=== PATIENT | male | born 1955 | race Caucasian/White ===

== ENCOUNTER 2024-10-22 05:33 | Inpatient (IN) ==
--- NOTE | 2024-10-16 12:12 | Anesthesiology Consultation ---
Date of Service October 16, 2024 Assessment & Plan (1) Encounter for pre-operative examination: Chart Review Chart Review: Acceptable Risk for Surgery and Patient NOT seen in Pre Admission Testing -Infectious Disease screening: Per PAT nursing assessment on 10/16/24. No known infectious disease contacts in past 10 days or current infectious disease symptoms. No recent travel outside the country. History Surgery Operation Date: 10/22/24 07:45 Proposed Procedures p L2-L3 Decompression and Fusion, Hardware Removal L3-L5 - Dov Myers DO Height/Weight Height: 5 ft 8 in Weight: 92.986 kg Allergies Allergy/AdvReac Type Severity Reaction Status Date / Time dutasteride Allergy Severe Difficulty Verified 10/16/24 11:33 Breathing Medications Home Medications Medication Instructions Recorded Confirmed Last Taken Vitamin D3 1 tab PO QPM 10/16/24 10/16/24 Unknown ascorbic acid (vitamin C) 1,000 mg 1 g PO QPM 10/16/24 10/16/24 Unknown tablet (Vitamin C) cyanocobalamin (vitamin B-12) 1 tab PO QPM 10/16/24 10/16/24 Unknown lisinopril 5 mg tablet 5 mg PO QAM 10/16/24 10/16/24 Unknown magnesium 200 mg tablet 400 mg PO HS 10/16/24 10/16/24 Unknown zolpidem 5 mg tablet (Ambien) 5 mg PO HS PRN prn 10/16/24 10/16/24 Unknown Past Medical History Medical History History of urinary retention [id number] self cath daily, was told "bladder was " referred to urology and had TURP 2018, no issues since Hypertension Osteoarthritis Past Surgical History Surgical History Fusion of spine L3 L4 L5-[facility] History of cataract surgery bilateral History of tonsillectomy History of transurethral resection of prostate History of umbilical hernia repair Social History Smoking Status: Never smoker Do You Dip or Chew Tobacco: No Hx Alcohol Use: Yes alcohol intake frequency: a few times a week Hx Substance Use: No substance use type: does not use Lab Results Anesthesia Preop Results Results Anesthesia Widget: WBC 6.03 K/ul (4.8-10.8) 11/12/24 Hgb 16.1 g/dl (14.0-18.0) 10/13/24 Hct 46.5 % (42.0-52.0) 10/13/24 Plt 213 K/uL (130-400) 10/13/24 Na 139 mmol/L (136-145) 10/13/24 K 4.1 mmol/L (3.5-5.1) 10/13/24 Cl 106 mmol/L (98-107) 10/13/24 CO2 25 mmol/L (21-32) 10/13/24 BUN 16 mg/dl (6-23) 10/13/24 Creat 0.97 mg/dl (0.6-1.4) 10/13/24 Glucose Level 90 mg/dl (70-99(Fasting)) 10/13/24 PT 10.3 Seconds (9.0-12.0) 10/13/24 PTT 29 Seconds (21-31) 10/13/24 INR 0.9 (0.9-1.1) 10/13/24 Urine Color Yellow 10/13/24 Urine Appearance Clear (Clear) 10/13/24 Urine pH 5.5 (4.5-7.5) 10/13/24 Urine Specific [place] 1.017 (1.000-1.030) 10/13/24 Urine Protein Negative (Negative) 10/13/24 Urine Glucose (UA) Negative (Negative) 10/13/24 Urine Ketones Negative (Negative) 10/13/24 Urine Blood Negative (Negative) 10/13/24 Urine Nitrite Negative (Negative) 10/13/24 Urine Bilirubin Negative (Negative) 10/13/24 Urine Urobilinogen Negative (Negative) 10/13/24 Urine Leukocyte Esterase Negative (Negative) 10/13/24 Blood Type O Positive 10/13/24 Antibody Screen NEGATIVE 10/13/24 Testing Laboratory Results 10/13/24= URINE CULTURE: More than three types of organisms present, all low counts mixed probable skin kimberly Electrocardiogram Date: 10/13/24 Findings: + NSR @ (60bpm) Normal EKG per cardio Chest X-Ray Date: 10/13/24 Findings: + NAD
[2024-10-22] MEDS: ACETAMINOPHEN 500 MG TAB PO SCH (06:13)
[2024-10-22] MEDS: LR 15ML/HR IV SCH (06:13)
[2024-10-22] MEDS: CeleBREX 200 MG CAP PO SCH (06:13)
[2024-10-22] MEDS: GABAPENTIN 300 MG CAP PO SCH (06:13)
[2024-10-22] MEDS: LR 60ML/HR IV SCH (06:13)
[2024-10-22] MEDS ORDERED: MIDAZOLAM HCL 1 MG/ML 2ML VIAL ONE (07:01)
[2024-10-22] MEDS ORDERED: fentaNYL citrate PF 100 MCG/2 ML VIAL ONE ×2 (07:01→09:15)
[2024-10-22] MEDS ORDERED: ROCURONIUM BROMIDE 10 MG/ML 5 ML VIAL IV ONE (07:02)
[2024-10-22] MEDS ORDERED: PROPOFOL IV EMULSION 10 MG/ML 20 ML VIAL IV ONE ×2 (07:02→07:03)
[2024-10-22] MEDS ORDERED: ONDANSETRON INJ 2 MG/ML 2 ML VIAL ONE (07:02)
[2024-10-22] MEDS ORDERED: GLYCOPYRROLATE 0.2 MG/ML VIAL ONE ×2 (07:02→08:52)
[2024-10-22] MEDS ORDERED: DEXAMETHASONE SOD INJ 4 MG/ML VIAL ONE (07:02)
[2024-10-22] MEDS ORDERED: LIDOCAINE 2% 2 ML VIAL/AMP(20MG/ML) INFIL ONE (07:02)
[2024-10-22] MEDS ORDERED: ePHEDrine sulfate 50 MG/ML AMP IV PRN (07:14)
[2024-10-22] MEDS ORDERED: PROMETHAZINE HCL 6.25 MG in SODIUM CHLORIDE 0.9% 50 ML IV PRN (07:14)
[2024-10-22] MEDS ORDERED: fentaNYL citrate PF 100 MCG/2 ML VIAL IV PRN (07:14)
[2024-10-22] MEDS ORDERED: ONDANSETRON INJ 2 MG/ML 2 ML VIAL IV PRN ×2 (07:14→11:43)
[2024-10-22] MEDS ORDERED: ATROPINE SULFATE 0.1 MG/ML 10ML SYR IV PRN (07:14)
--- NOTE | 2024-10-22 07:40 | History & Physical Bridge Note ---
Date of Service October 22, 2024 History & Physical Bridge Note I have examined the patient, reviewed the History & Physical and in the interval since the performance of the History & Physical I have noted the following changes of clinical significance: no changes noted
--- NOTE | 2024-10-22 07:41 | History & Physical Report ---
Date of Service October 22, 2024 Assessment & Plan (1) Neurogenic claudication due to lumbar spinal stenosis: Plan: L2-L3 decompression and fusion, hardware removal L3-L5. History of Present Illness Chief Complaint: Back and leg pain Primary Care Provider: Sundeep Ortiz This is a 68-year-old male presents with chronic persistent back and leg pain and failing course of nonoperative care is here for surgical invention. Allergies Allergy/AdvReac Type Severity Reaction Status Date / Time dutasteride Allergy Severe Difficulty Verified 10/22/24 05:58 Breathing Home Medications Medication Instructions Recorded Confirmed Type Vitamin D3 1 tab PO QPM 10/16/24 10/16/24 History ascorbic acid (vitamin C) 1,000 mg 1 g PO QPM 10/16/24 10/16/24 History tablet (Vitamin C) cyanocobalamin (vitamin B-12) 1 tab PO QPM 10/16/24 10/16/24 History lisinopril 5 mg tablet 5 mg PO QAM 10/16/24 10/22/24 History magnesium 200 mg tablet 400 mg PO HS 10/16/24 10/16/24 History zolpidem 5 mg tablet (Ambien) 5 mg PO HS PRN prn 10/16/24 10/16/24 History Past Med/Surg History Problem List (Updated 10/22/24 @ 07:41 by Dov Myers DO) Neurogenic claudication due to lumbar spinal stenosis Encounter for pre-operative examination Carpal tunnel syndrome on both sides Medical History History of urinary retention [id number] self cath daily, was told "bladder was " referred to urology and had TURP 2018, no issues since Hypertension Osteoarthritis Surgical History Fusion of spine L3 L4 L5-[facility] History of cataract surgery bilateral History of tonsillectomy History of transurethral resection of prostate History of umbilical hernia repair Social History Smoking Status: Never smoker Second Hand Exposure: No; Do You Dip or Chew Tobacco: No; Tobacco Cessation Education Requested by Patient: No Hx Alcohol Use: Yes Hx Substance Use: No Preferred Language: Telugu Frame Bander Required: No Beliefs That Will Affect Care: None Current Living Situation: Family Other Information That Helps Us Care for You: No Feels Safe at Home: Yes Safety Concerns: Feels Safe At This Time Assistive Devices: None Physical Exam Physical Exam: Patient is alert and oriented heart regular in rhythm lungs clear Results & Data Results & Data Vital Signs (Past 12 Hours) Vital Signs Temp Pulse Resp BP Pulse Ox O2 Del Method 10/22/24 05:57 36.4 C L 68 20 153/93 H 95 Room Air
[2024-10-22] MEDS: ceFAZolin 2000MG 2,000 MG/15 ML SYR IV SCH ×2 (07:48→16:41)
[2024-10-22] MEDS: BUPIVACAINE/EPINEPHRINE 0.25% 1:200,000 30 ML VIAL ONE (08:33)
[2024-10-22] MEDS: ceFAZolin 330 MG/ML 1 GM VIAL ONE (08:34)
[2024-10-22] MEDS ORDERED: diphenhydrAMINE 50 MG/ML VIAL ONE (08:53)
[2024-10-22] MEDS ORDERED: PHENYLEPHRINE 100MCG/ML 5ML SYR ONE (09:23)
[2024-10-22] MEDS ORDERED: SUGAMMADEX SODIUM 200 MG/2 ML VIAL IV ONE (09:36)
--- NOTE | 2024-10-22 10:05 | Operative Report ---
Post Operative Report Pre & Post Diagnosis Operation Date: 10/22/24 07:45 Pre-Op Diagnosis: Neurogenic Claudication due to Lumbar Spinal Stenosis Lumbar discrimination L2-L3 Post-Op Diagnosis: same I identified the patient and participated in the time-out.: Yes Procedure Operation Date: 10/22/24 07:45 Actual Procedures 1. Removal of posterior instrumentation L3-L4 L4-L5. #2 exploration of fusion L3-L4 L4-L5. #3 lumbar decompression with bilateral medial facetectomies and foraminotomies L1-L2 L2-L3 including removal of herniated disc. #4 posterior spinal fusion L2-L3. #5 placement posterior instrumentation L2-L5. #6 interbody fusion L2-L3. #7 placement of Spira 14 x 26 mm at L2-L3. #8 placement locally harvested morselized autograft and posterior gutters. #9 placement infuse collagen sponge, with Koros in the posterior lateral gutters and os design and interbody space. #10 placement of versa wrap of the exposed dura. Surgeon Dov Myers, DO Bit Grinder Marilynn Hannah Estimated Blood Loss 200 Findings See Below The patient is 5 foot 8 weighing over 93 kg with a BMI in excess of 31. Patient's body habitus did contribute to significant technical difficulty with positioning exposure and the procedure itself adding at least 50% increased operative time. Specimens None Indications This is a 68-year-old male presents manage diagnosis of failed course of nonoperative care is here for surgical invention. Description of Procedure Patient was met with identified informed consent obtained. Patient was then taken to the operative suite underwent intubation placed in a prone position on the Abad table on top of the Herminio frame. All bony prominences well-padded eyes inspected to ensure no external pressure placed upon them. This point the lumbar spine was prepped and draped in a sterile fashion. Sharp dissection with the assistance of Bovie cautery was formed down to and exposing the lamina and transverse processes of L2 and instrumentation L3 L4-5 bilaterally. I then proceeded to remove the hardware bilaterally explored the fusion mass noted again to be mature and intact. Then performed a complete laminectomy of L2 with bilateral medial facetectomies and foraminotomies including removal of herniated disc on the right. This was followed by partial laminectomy of L1 with bilateral medial facetectomies to address all subarticular stenosis. Pedicle screws then placed at L2-L3 and L5 bilaterally with assistance of fluoroscopy and appropriate sized tete contoured and placed. By way of a trans foraminal approach on the right and complete discectomy of L2-L3 was performed endplates guided to subcortical bleeding bone and a 14 x 26 mm Spira cage filled with os design tapped into position. The rods were then compressed locked in final position bilaterally. The transverse processes of L2-L3 burred to subcortical bleeding bone. Infuse collagen sponge combined with Koros and local autograft placed in the posterior lateral gutters. Versa wrap placed over the exposed dura. 15 round JESSICA drain inserted. Incision was then closed with 1 Vicryl fascia 2-0 Vicryl subcutaneously and 4 Monocryl for final skin closure. Steri- Strips sterile dressing placed. Patient waken taken to PACU in stable condition. Please note Marilynn Hannah was present out the entire procedure and all the patient positioning complex portion of the surgery and final skin closure. Spinal cord monitoring was utilized at the procedure no changes noted. Im ordering 20 grams of Triple Funk Collagen Powder ([id number] [id number]) to treat an incision wound that was caused by a spine procedure. The incision is approximately 2 cm(W) x 4 cm(L) into the joint (D) in size and is a full thickness wound. Triple Funk collagen comes in 1 gram packets so 20 packets were ordered. Given the size of the wound, with light to moderate exudate I chose to order a 20 day supply. The patient will be provided instructions for proper application of the collagen wound kit. The patient will be asked to apply the collagen powder daily and then cover it with sterile dressings dispensed. Collagen was selected as I expect the collagen to attract monocytes and fibroblasts, act as a sacrificial substrate for MMPs, and ultimately proved a matrix for tissue and vessel growth. The collagen will act as a primary dressing in this scenario. It is medically necessary for proper healing of these wounds to improve bioavailability and contact with each wound surface, t his is also to help prevent infection of wounds and promote healing ultimately leading to a better healing outcome and limit the risk of infection. I attest to the content of the Intraoperative Record and any orders documented therein. Any exceptions are noted below.
[2024-10-22] MEDS: FLOSEAL HEMOSTATIC MATRIX 10ML TOP ONE (10:11)
--- NOTE | 2024-10-22 10:53 | Fluoroscopy Report ---
FL lumbar spine 2-3V CLINICAL HISTORY: L2-L3 DECOMPRESSION COMPARISON STUDY: Lumbar spine radiographs April 04, 2018. Lumbar spine MRI March 28, 2018. FLUOROSCOPY TIME: 12 seconds. cem Aj: 9.33 mGy FLUOROSCOPIC IMAGES: 2 FINDINGS: Fluoroscopy was provided during hardware removal and subsequent L2-L3 discectomy and fusion . Left L4 pedicle screw remains in place. There are bilateral pedicle screws at the L2, L3 and L5 lev els with interconnecting rods. IMPRESSION: Fluoroscopy provided during hardware removal and subsequent L2-L3 decompression and fusi on. ACT 112: Negative or not required by law. Electronically signed by: Compa Rock M.D. 10/22/2024 10:52 AM
--- NOTE | 2024-10-22 10:58 | Anesthesiology Progress Note ---
Date of Service October 22, 2024 Anesthesia Post Procedure Vital Signs Vital Signs: Temp Pulse Pulse Resp BP Pulse Ox O2 Del Method 10/22/24 10:45 76 10 L 136/91 98 Oxymask 10/22/24 10:35 70 11 L 148/97 H 98 Oxymask 10/22/24 10:25 74 8 L 154/105 H 98 Oxymask 10/22/24 10:16 36.0 C L 84 8 L 167/97 H 96 Oxymask 10/22/24 05:57 36.4 C L 68 20 153/93 H 95 Room Air O2 Flow Rate 10/22/24 10:45 3 10/22/24 10:35 3 10/22/24 10:25 6 10/22/24 10:16 6 10/22/24 05:57 Transfer of Care Handoff Completed per policy Notes Mental Status: alert / awake / arousable Patient Amnestic to Procedure: Yes Nausea / Vomiting: adequately controlled Pain: adequately controlled Airway Patency, RR, SpO2: stable & adequate BP & HR: stable & adequate Hydration State: stable & adequate Anesthetic Complications: no major complications apparent
[2024-10-22] MEDS ORDERED: MAGNESIUM HYDROXIDE SUSP 30 ML UDC PO PRN (11:43)
[2024-10-22] MEDS ORDERED: diphenhydrAMINE Capsule 25 MG CAP PO PRN (11:43)
[2024-10-22] MEDS ORDERED: ALUMINUM/MAGNESIUM SUSP 30 ML UDC PO PRN (11:43)
[2024-10-22] MEDS ORDERED: bisacodyL 10 MG SUPP PR PRN (11:43)
[2024-10-22] MEDS ORDERED: HYDROmorphone INJ 1 MG/ML SYRINGE IV PRN (11:43)
[2024-10-22] MEDS ORDERED: PROMETHAZINE 12.5 MG/50.5 ML BAG IV PRN (11:43)
[2024-10-22] MEDS ORDERED: LORazepam 2 MG/1 ML VIAL IV PRN (11:43)
[2024-10-22] MEDS ORDERED: oxyCODONE HCL IR 5 MG TAB (IMMEDIATE RELEASE) PO PRN (11:43)
[2024-10-22] MEDS ORDERED: LORazepam 0.5 MG TAB PO PRN (11:43)
[2024-10-22] MEDS ORDERED: traMADol HCL 50 MG TABLET PO PRN (11:43)
[2024-10-22] MEDS ORDERED: DO NOT ADMINISTER PNEUMOCOCCAL VACCINE PRN (11:43)
[2024-10-22] MEDS ORDERED: DO NOT ADMINISTER FLU VACCINE PRN (11:43)
[2024-10-22] MEDS ORDERED: ZOLPIDEM TARTRATE 5 MG TAB PO PRN (11:43)
[2024-10-22] MEDS ORDERED: FAMOTIDINE 20 MG TAB PO PRN (11:43)
[2024-10-22] MEDS ORDERED: SOD PHOSPHATE/SOD BIPHOSPHATE ENEMA 132 ML BTL PR PRN (11:43)
[2024-10-22] MEDS ORDERED: METOCLOPRAMIDE HCL INJ 5 MG/ML 2 ML VIAL IV PRN (11:43)
[2024-10-22] MEDS ORDERED: NALOXONE HCL 0.4 MG/1 ML VIAL/CARP IV PRN (11:43)
[2024-10-22] MEDS ORDERED: HYDROmorphone INJ 0.5 MG/0.5 ML SYR IV PRN (11:43)
[2024-10-22] MEDS ORDERED: hydrOXYzine HCl 25 MG TAB PO PRN (11:43)
[2024-10-22] MEDS ORDERED: ACETAMINOPHEN 1,000 MG/100 ML VIAL IV PRN (11:43)
[2024-10-22] MEDS ORDERED: ONDANSETRON 4 MG OD TAB PO PRN (11:43)
[2024-10-22] MEDS: DOCUSATE SODIUM/SENNA 50/8.6MG TAB PO SCH (21:16)
[2024-10-22] MEDS: ASCORBIC ACID 500 MG TAB PO SCH (21:17)
[2024-10-22] MEDS: MAGNESIUM OXIDE 400 MG TAB PO SCH (21:17)
[2024-10-22] MEDS: CHOLECALCIFEROL 125 MCG (5,000 UNITS) TAB PO SCH (22:10)
[2024-10-22] MEDS: ACETAMINOPHEN 500 MG TAB PO PRN (23:47)
[2024-10-23] MEDS: POLYETHYLENE (MIRALAX) 17 GM PACK PO SCH (05:47)
[2024-10-23] MEDS: lisinopril 5 MG TAB PO SCH (07:37)
[2024-10-23] MEDS: dexAMETHasone 6 MG in SYRINGE 0 ML IV SCH (07:37)
[2024-10-23 08:17] LABS: Basophils # (auto) 0.03 K/uL (0.00-0.20); Basophils % (auto) 0.3 %; Eosinophils # (auto) 0.01 K/uL (0.00-0.50); Eosinophils % (auto) 0.1 %; Hematocrit (blood only) 46.4 % (42.0-52.0); Hemoglobin 15.7 g/dl (14.0-18.0); Immature Granulocytes # (auto) 0.05 K/uL (0.01-0.20); Immature Granulocytes % (auto) 0.4 %; Lymphocytes # (auto) 1.89 K/uL (1.20-3.40); Lymphocytes % (auto) 16.4 %; Mean Corpuscular Hemoglobin 29.7 pg (25.0-34.0); Mean Corpuscular Hgb Conc 33.8 g/dL (32.0-36.0); Mean Corpuscular Volume 87.9 fL (80.0-100.0); Mean Platelet Volume 9.8 fL (9.4-12.4); Monocytes # (auto) 1.25 K/uL (0.11-0.59); Monocytes % (auto) 10.8 %; Platelet Count 230 K/uL (130-400); RDW Coefficient of Variation 11.9 % (11.5-14.5); RDW Standard Deviation 37.9 fL (36.4-46.3); Red Blood Count 5.28 M/uL (4.70-6.10); White Blood Count 11.53 K/ul (4.8-10.8)
[2024-10-23 08:32] LABS: BUN Creatinine Ratio 17.5 (10-20); Calcium 9.1 mg/dl (8.6-10.3); Creatinine Clr Calc Pharmacy 84.2 ml/min; Potassium 4.2 mmol/L (3.5-5.1)
--- NOTE | 2024-10-23 10:15 | Orthopedic Progress Note ---
Date of Service October 23, 2024 Assessment & Plan (1) Neurogenic claudication due to lumbar spinal stenosis: Plan: At this time continue physical therapy monitor his JESSICA operatively discharge home the next few days. Admission and Anticipated Discharge Date Admission Date: October 22, 2024 Subjective Back pain controlled leg pain markedly improved Physical Exam Physical Exam: On exam patient is consented testing. Is comfortable. Results & Data Vital Signs (Past 12 Hours) Vital Signs Temp Pulse Resp BP Pulse Ox O2 Del Method 10/23/24 07:50 36.4 C L 74 18 151/92 H 96 Room Air 10/22/24 23:51 36.7 C 92 H 18 138/79 94 Room Air Queries Orthopedic Spine Obesity: Yes
--- NOTE | 2024-10-24 09:21 | Discharge Summary ---
Date of Service October 24, 2024 Admission HPI Per Admitting Provider This is a 68-year-old male presents with chronic persistent back and leg pain and failing course of nonoperative care is here for surgical invention. Principal Diagnosis Lumbar spinal stenosis with herniated nucleus polyposis and radiculopathy Discharge Data Allergies Allergy/AdvReac Type Severity Reaction Status Date / Time dutasteride Allergy Severe Difficulty Verified 10/22/24 05:58 Breathing Procedures Performed Operation Date: 10/22/24 07:45 Actual Procedures p L2-L3 Decompression and Fusion, Spinal Cord Monitoring(Not Applicable) - Dov Myers DO s L3-L5 Hardware Removal,(Not Applicable) - Dov Myers DO Ordered Studies 10/22/24 07:45 [place] lumbar spine 2-3V Routine Hospital Course (1) Neurogenic claudication due to lumbar spinal stenosis: Patient with lumbar depression fusion trial as well as seeing the orthopedic for postoperative. Postop he progressed appropriate. Extra strength testing. Pain well-controlled. JESSICA drain decreasing appropriately. Simply discharged home. Discharge orders instructions from the chart for further review. Total Time Total Time Spent Total Time Spent (In Minutes): 20 minutes Discharge Plan Discharge Items Patient Disposition: Home - Self-Care Reason For Visit: POSTOP Discharge Diagnosis: Lumbar spinal stenosis with neurogenic claudication Activity: As commented below Non-emergency contact: Primary Care Provider Call non-emergency contact if: you have any medication questions Follow-up/Referrals: Sundeep Ortiz D.O. [Primary Care Provider] - Diet: Regular Addtl Attending Provider Instructions: ACTIVITY RECOMMENDATIONS: SELF CARE INSTRUCTIONS AFTER THORACIC/LUMBAR FUSIONS 1. You may walk to your tolerance. It is good exercise for your legs and back. Expect some back and intermittent leg aches and pains. 2. You may perform "counter-top" level activities (make a sandwich, areli with a project, etc.). 3. No bending or lifting of more than 10 pounds or back twisting of any nature (roll like a log when turning in bed). 4. You may ride in a car for 20-30 minutes at a time. No driving until after your first visit with your doctor. 5. Frequent changes of position and restricting sitting to 30 minutes at a time will help limit the amount of back spasms and stiffness you may experience. 6. You may discontinue the use of ambulatory aids (cane, crutches, etc.) once your strength and confidence allow. 7. You may compression molding machine tender the shower and let water strike your incision when you arrive home at least once daily. Do not take a tub bath, sit in a hot tub or go into a swimming pool until after your first recheck in the office. 8. You may resume previous diet. SPECIAL CARE INSTRUCTIONS: VERY IMPORTANT TO READ AND REVIEW A. Your surgical incision has been closed with a cosmetic suture under the skin that will dissolve in about 6 weeks. In 14 days, you can use a pair of clean scissors and cut the suture that is left outside of the skin at the ends of your incision. 1. The small skin tapes can be removed 7 days after surgery if they have not fallen off by that point. 2. You may keep the wound open to air as much as possible to promote healing after post-op day number 5 unless told otherwise by your doctor. 3. If you think the wound looks like it is becoming infected (redness or worsening drainage) and/or you are experiencing fever, chill or worsening back pain and muscle spasms, contact the office so that we may evaluate you as soon as possible. B. Complications are uncommon, but please contact us if you have any signs or symptoms of: 1. wound infection (fever higher than 102.5 degrees F, redness, separation of wound, drainage, or increasing pain from the incision) 2. blood clots in legs (pain, swelling, redness and warmth in legs) 3. urinary tract infection (fever higher than 102.5 degrees F, burning upon urination or increased frequency of urination) 4. nerve problems (inability to walk on your toes or heels, numbness, loss of bowel or bladder control) 5. any other symptoms that concern you C. Please call the office at if you have any concerns or questions about your operation or recovery. D. No smoking! Smoking drastically decreases the chance of a solid fusion. E. Do not take any anti-inflammatory medications (Indocin, Advil, Motrin, Aspirin, Naprosyn, etc.) as these may inhibit the chance of a solid fusion. Tylenol is okay to take for pain. MANAGING PAIN AFTER SPINAL SURGERY 1. Narcotic medication is intended for short-term use and will be provided for surgical pain. Surgical pain usually lasts for a period of 4-6 weeks. Narcotic medication includes Percocet, Vicodin, Darvocet, Tylenol #3 or Lortab. 2. Longer-term pain is more appropriately treated with non-narcotic medication such as Tylenol ES. 3. Muscle spasm is not appropriately treated with narcotics. Muscle relaxers such as Soma, Flexeril or Skelaxin can be used along with Tylenol ES. 4. Remember that we all live with some "aches and pains". This is not unusual or uncommon after an injury or as we get older. a. Back pain is expected and may include muscle spasms for 4 to 6 weeks after surgery. The pain should gradually improve. If the pain worsens for no apparent reason, please contact the office. b. Intermittent leg pain may also be experienced and should not be concerned about unless it worsens for no apparent reason. If so, please contact the office. 5. We will provide appropriate medication within the normal guidelines of their prescribed use. We will also be very cautious and aware of potential abuse and extended duration of patients' medication needs. a. Pain medications are for your comfort and to assist with sleep and rest so that the tissue can heal. They are not provided in order to return to normal activity and should not be used through the day. To do so or worsening pain at night can result from ongoing tissue damage and development of tolerance to the prescribed medicine. 6. Please allow 2-3 days to process refills. Prescriptions will not be mailed but must be picked up at the office. FOLLOW UP VISIT: Keep your scheduled follow-up appointment. Any questions, please call the office at . Pending Studies at Discharge: No Stand-Alone Forms: My [facility] Responsible [place], Smoking Cessation Medications and DC Order Prescriptions: New tramadol 50 mg tablet 50 mg PO Q6H PRN (Reason: pain, moderate) Qty: 30 0RF oxycodone 5 mg tablet 5 mg PO Q6H PRN (Reason: pain) Qty: 30 0RF Continued ascorbic acid (vitamin C) [Vitamin C] 1,000 mg Tablet 1 g PO QPM lisinopril 5 mg Tablet 5 mg PO QAM zolpidem [Ambien] 5 mg Tablet 5 mg PO HS PRN (Reason: prn) magnesium 200 mg Tablet 400 mg PO HS Vitamin B-12 Tablet,Chewable 1 tab PO QPM Vitamin D3 1 tab PO QPM Discharge Orders: Discharge Order (Routine); Ordered 10/24/24 Ordered By: Dov Myers Admission Data Admit Date/Time: 10/22/24 10:08 Attending Provider: Dov Myers Admit Provider: Dov Myers Primary Care Provider: Sundeep Ortiz
[2024-10-24 14:42] VITALS: BP 128/75; PULSE 70; RESP 18; TEMP 98.2; O2SAT 96
== END 2024-10-24 14:43 | disposition home or self-care (01) | DRG 402 ==
LOC: ASU 05:33 → 3N 10:08